=== PATIENT | male | born 1950 | race Two or more races ===

== ENCOUNTER 2023-12-07 10:41 | Emergency (ER) | payer OTHER ==
[~2023-12-07] VITALS: Ht 165.1 cm; Wt 75.9 kg
[2023-12-07 11:32] LABS: Basophils # (auto) 0.1 10 ^3/uL (0-0.2); Eosinophils # (auto) 0.5 10 ^3/uL (0-0.8); Monocytes # (auto) 0.4 10 ^3/uL (0-1.3); Neutrophils # (auto) 6.5 10 ^3/uL (1.6-8.6)
[2023-12-07 11:34] LABS: Basophils % (auto) 0.6 % (0.0-2.0); Eosinophils % (auto) 5.2 % (0.0-7.0); Lymphocytes # (auto) 1.8 10 ^3/uL (0.4-5.4); Lymphocytes % (auto) 19.8 % (10.0-50.0); Mean Corpuscular Hemoglobin 21.7 pg (28.0-32.0); Mean Corpuscular Hgb Conc. 32.4 g/dL (32.0-36.0); Mean Corpuscular Volume 66.8 fL (80.0-100.0); Monocytes % (auto) 4.3 % (0.0-12.0); Neutrophils % (auto) 70.1 % (37.0-80.0); Nucleated Red Blood Cells % 0.1 %; White Blood Cell 9.3 10^3/uL (4.4-10.8)
[2023-12-07 11:37] LABS: Red Cell Distribution Width 20.5 % (11.8-14.3)
[2023-12-07 11:52] LABS: Alanine Aminotransferase 13 U/L (7-40); Albumin 4.4 g/dL (3.2-4.8); Alkaline Phosphatase 82 U/L (46-116); Anion Gap 7 (5-15); Aspartate Aminotransferase 11 U/L (13-40); BUN/Creatinine Ratio 9.3 (10.0-20.0); Bilirubin, Total 0.7 mg/dL (0.2-1.0); Blood Urea Nitrogen 10 mg/dL (9-23); Calcium 9.5 mg/dL (8.5-10.1); Carbon Dioxide 29 mmol/L (20-30); Chloride 103 mmol/L (98-107); Glucose 234 mg/dL (74-106); Potassium 3.9 mmol/L (3.5-5.1); Sodium 139 mmol/L (136-145); Total Protein 7.6 g/dL (5.7-8.2)
[2023-12-07 11:56] LABS: Hypochromia Moderate; Platelet Estimate Adequate
[2023-12-07] MEDS: IPRATROPIUM BROM 0.5 MG/2.5ML INH SOL HHN ONE (12:08)
[2023-12-07] MEDS: ALBUTEROL SULF 2.5 MG/0.5ML(0.5%) NEB SOLN HHN ONE (12:08)
[2023-12-07 12:37] LABS: Magnesium 1.8 mg/dL (1.6-2.6)
[2023-12-07 15:44] LABS: COVID19 ANTIGEN SOFIA FIA NEGATIVE (NEGATIVE); Rapid Influenza A Negative (Negative); Rapid Influenza B Negative (Negative)
[2023-12-07] MEDS ORDERED: ALBU108A5 IN (15:52)
[2023-12-07] MEDS ORDERED: PRED20TA2 PO (15:52)
[2023-12-07] MEDS: DexAMETHasone SOD PHOS 10MG/1ML VIAL INJ IV ONE (16:18)
[2023-12-07] MEDS: DexAMETHasone SOD PHOS 10MG/1ML VIAL INJ IM ONE (16:18)
[2023-12-07 16:56] VITALS: BP 132/90; PULSE 94; RESP 17; TEMP 98.2; O2SAT 98
== END 2023-12-07 16:57 | disposition home or self-care (01) ==
LOC: ER 10:41
DX: J20.9 Acute bronchitis, unspecified (principal); J45.909 Unspecified asthma, uncomplicated; Z20.822 Contact with and (suspected) exposure to COVID-19; Z79.899 Other long term (current) drug therapy
CPT/HCPCS: 36415; 71045; 80053; 83605; 83735; 85025; 87040; 87426; 87804; 94640; 99284; J1100; J7644